=== PATIENT | male | born 1955 | race Two or more races ===

== ENCOUNTER 2019-06-04 21:35 | Inpatient (IN) | payer OTHER ==
[~2019-06-04] VITALS: Ht 177.8 cm; Wt 85.5 kg
[2019-06-04] MEDS ORDERED: FUROSEMIDE 40 MG/4 ML VIAL IV ONE (21:45)
[2019-06-04] MEDS ORDERED: IPRATROPIUM BROM 0.5 MG/2.5ML INH SOL ONE (22:00)
[2019-06-04] MEDS ORDERED: ALBUTEROL SULF 2.5 MG/0.5ML(0.5%) NEB SOLN ONE (22:00)
[2019-06-04] MEDS ORDERED: IPRATROPIUM BROM 0.5 MG/2.5ML INH SOL NEB ONE (22:00)
[2019-06-04] MEDS ORDERED: ALBUTEROL SULF 2.5 MG/0.5ML(0.5%) NEB SOLN NEB ONE (22:00)
[2019-06-04] MEDS ORDERED: cloNIDine HCL 0.1 MG TAB PO ONE (22:30)
[2019-06-04 22:34] LABS: Basophils # (auto) 0.1 uL; Basophils % (auto) 0.5 % (0.0-2.0); Eosinophils # (auto) 0.3 uL; Hematocrit 35.6 % (41.0-53.0); Hemoglobin 11.8 g/dL (13.5-17.5); Lymphocytes # (auto) 1.9 uL; Lymphocytes % (auto) 17.1 % (10.0-50.0); Mean Corpuscular Hemoglobin 30.8 pg (28.0-32.0); Mean Corpuscular Hgb Conc. 33.1 g/dL (32.0-36.0); Mean Corpuscular Volume 92.9 fL (80.0-100.0); Monocytes # (auto) 0.6 uL; Neutrophils % (auto) 73.4 % (37.0-80.0); Platelet Count (auto) 159 10^3/uL (140-450); Red Blood Cells 3.84 10^6/uL (4.5-5.90); Red Cell Distribution Width 13.5 % (11.8-14.3); White Blood Cell 10.9 10^3/uL (4.4-10.8)
[2019-06-04 22:49] LABS: INR 1.02 (0.9-1.15); Partial Thromboplastin Time 22.8 sec (23.64-32.05)
[2019-06-04 22:52] LABS: Albumin 3.4 g/dL (3.4-5.0); BUN/Creatinine Ratio 7.2; Calcium 8.4 mg/dL (8.5-10.1); Potassium 3.8 mmol/L (3.5-5.1)
[2019-06-04 22:55] LABS: Bilirubin, Total 0.4 mg/dL (0.2-1.0); Total Protein 7.2 g/dL (6.4-8.2)
[2019-06-04] MEDS ORDERED: ENOXAPARIN SOD 80 MG/0.8ML SYRINGE SC ONE (23:15)
[2019-06-04 23:17] LABS: Urine Bacteria FEW /hpf (None Seen); Urine Blood 1+ /uL (Negative); Urine Hyaline Cast FEW /lpf (0 - 2); Urine Specific Gravity 1.006 (1.001-1.035); Urine WBC 2 /hpf (0 - 3)
[2019-06-04 23:29] LABS: Alcohol, Urine < 3.0 mg/dL (0-5); Amphetamine Screen, Urine NEGATIVE (NEGATIVE); Barbiturate Scree,Urine NEGATIVE (NEGATIVE); Benzodiazephine Screen, Urine NEGATIVE (NEGATIVE); Cannabinoid Screen, Urine NEGATIVE (NEGATIVE); Cocaine Screen, Urine NEGATIVE (NEGATIVE); Opiate Scree,Urine NEGATIVE (NEGATIVE); Phencyclidine Screen, Urine NEGATIVE (NEGATIVE)
[2019-06-05] VITALS (20 sets, daily range): BP systolic 125–179; BP diastolic 60–110
[2019-06-05] MEDS: NITROGLYCERIN 50MG/250ML 250 ML IV SCH ×2 (03:30→18:38)
[2019-06-05] MEDS ORDERED: METOPROLOL TARTRATE 1MG/1ML-5ML VIAL IV ONE (05:15)
[2019-06-05] MEDS ORDERED: HYDROcodone-ACET 5/325MG TAB PO PRN (06:45)
[2019-06-05] MEDS ORDERED: MORPHINE SULF INJ 2 MG/ML SYRINGE 1ML IV PRN ×2 (06:45)
[2019-06-05] MEDS ORDERED: ASPirin 81 mg TAB PO ONE (06:45)
[2019-06-05] MEDS ORDERED: ONDANSETRON HCL 4 MG/2 ML VIAL IV PRN (06:45)
[2019-06-05] MEDS ORDERED: NITROGLYCERIN 0.4 MG SL TAB SL PRN (06:45)
[2019-06-05] MEDS ORDERED: hydrALAZINE HCL 20 MG/ML VL IV PRN (06:45)
[2019-06-05] MEDS ORDERED: ACETAMINOPHEN 500 MG TAB PO PRN (06:45)
[2019-06-05] MEDS ORDERED: LIDOCAINE 2%HCL (LOCAL ANESTH.) INJ 20ML MDV ONE (06:51)
--- NOTE | 2019-06-05 06:57 | NUR ---
RT NOTE: PT TAKEN OFF OF BIPAP AND PLACED ONTO 3LNC. WILL CONTINUE TO MONITOR.
[2019-06-05] MEDS ORDERED: ANGIOMAX 250 MG VIAL IV ONE (06:59)
[2019-06-05] MEDS ORDERED: SODIUM CHL 0.9% 50 ML ONE (07:00)
[2019-06-05] MEDS ORDERED: MIDAZOLAM HCL 1MG/1ML-2 ML VIAL ONE (07:00)
[2019-06-05] MEDS ORDERED: ATROPINE SULFATE 1 MG/1 ML VIAL ONE (07:00)
[2019-06-05] MEDS ORDERED: fentaNYL CITRATE 100 MCG/2 ML VL ONE (07:00)
[2019-06-05] MEDS ORDERED: IODIXANOL 320MG/ML 100ML BTL IV ONE (07:19)
[2019-06-05] MEDS ORDERED: EPINEPHrine HCL 1 MG/10 ML SYRG ONE (07:25)
[2019-06-05] MEDS ORDERED: TICAGRELOR 90 MG TAB ONE (07:44)
[2019-06-05] MEDS ORDERED: HEPARIN SODIUM (PORCINE) 5000 UNITS/ML 1ML VIAL ONE (07:51)
[2019-06-05] MEDS ORDERED: OPTISON 3ml Vial for INJ IV ONE (08:43)
[2019-06-05] MEDS: FAMOTIDINE 20 MG TAB PO SCH (09:13)
[2019-06-05] MEDS: DOCUSATE SOD 100 MG CAP PO SCH ×2 (09:13→22:24)
[2019-06-05] MEDS: METOPROLOL TARTRATE 25 MG TAB PO SCH ×2 (09:14→22:23)
[2019-06-05] MEDS ORDERED: LISINOPRIL 10 MG TAB PO SCH (10:00)
[2019-06-05] MEDS ORDERED: SODIUM CHL 0.9% 1000 ML BAG XX ONE (10:15)
--- NOTE | 2019-06-05 10:32 | NUR ---
I faxed clinical information to [facility] including ER notes, H&P, all xrays, operative report, current labs, vitals, and medication list.
[2019-06-05 10:49] LABS: Protein, Urine 235.2 mg/dL (0.0-11.9)
[2019-06-05 10:53] LABS: Phosphorus 4.9 mg/dL (2.5-4.90); Uric Acid 8.8 mg/dL (3.5-7.2)
[2019-06-05] MEDS: CALCIUM ACETATE 667 MG CAP PO SCH ×2 (12:00→18:31)
--- NOTE | 2019-06-05 12:45 | NUR ---
ICU pt S/P Cardiac Cath Report received from Jimmy Tanner. KAELYN AMOS brought to bed 109 following Left Cardiac catheterization, on laboratory monitor and portable oxygen. Patient transferred to ICU bed, connected to ICU monitoring and oxygen. Dialysis Catheter in right groin. Patient educated on need to keep leg straight and flat. Patient verbalized understanding. Site during bedside report noted to have oozing on current gauze dressing. Site soft to touch, no ecchymosis noted, slightly tender to touch. Dressing cleansed and changed by asphalt plant laborer nurse. Pedal pulses on affected leg assessed for positive tissue perfusion. Patient instructed on need to notify staff immediately if any pain, burning or wetness to site, and any lower back pain. Patient educated on new cardiac medications. All questions and concerns addressed, patient verbalized understanding of all education and instruction. See notes for any further. NOTE: Addendum: 06/05/19 at 1405 by Divina Briones RN Patient currently on 60mcg of Nitro gtt. bp 156/83. Patient denies any chest pain or distress.
--- NOTE | 2019-06-05 13:00 | NUR ---
AT BEDSIDE Dr. Rojas at bedside. Updated on patients status. See new orders.
--- NOTE | 2019-06-05 13:58 | NUR ---
DIALYSIS PENDING DANDY FROM [facility] CALLED STATING SHE WILL BE ARRIVING AFTER HER CURRENT TREATMENT IN PROGRESS. PATIENT NOTIFIED AND VERBALIZED UNDERSTANDING.
--- NOTE | 2019-06-05 15:09 | NUR ---
Respiratory note: PT ASSESSED SP MANAGER HOTEL PROCEDURE, NO DISTRESS NOTED. SPO2 97% ON 2L N/C.
--- NOTE | 2019-06-05 15:25 | NUR ---
Right groin Patients right groin noted moderately saturated. 4x4 gauze replaced as dialysis nurse is in route. Catheter site noted to have small, slow amount of sanguinous drainage. Pulses present. No ecchymosis noted, soft upon palpation with some tenderness.
--- NOTE | 2019-06-05 15:31 | NUR ---
Dialysis nurse at bedside. Chart reviewed. Traci aware of right groin having slow steady oozing to site.
--- NOTE | 2019-06-05 17:20 | NUR ---
Family/home medications Patients sister Manjula unable to find patients home medications. She is stating she is going to attempt to contact patients pharmacy for list. Home med rec. pending.
--- NOTE | 2019-06-05 18:49 | NUR ---
DIALYSIS COMPLETE 2 LITERS REMOVED. LAST BP 144/85 HR 73. PT HAS SMALL AMOUNT OF CRAMPING TO LEFT LOWER LEG. DIALYSIS NURSE AT BEDSIDE DISCUSSED WITH PATIENT AND FAMILY MEMBER AT BEDSIDE S/S EXPECTED POST TX. PT VERBALIZED UNDERSTANDING. Addendum: 06/05/19 at 1851 by Divina Briones RN RIGHT GROIN DRESSING REMAINS INTACT, SMALL AMOUNT OF SANGUINOUS DRAINAGE NOTED. WILL CONTINUE TO MONITOR
--- NOTE | 2019-06-05 19:24 | NUR ---
NAUSEA/ VOMITING Patient in high fowlers post dialysis and suddenly became nauseous and vomited a moderate amount of emesis. Prn given. Patient continues to state he is hungry and requesting dinner tray. Tray set at bedside.
[2019-06-05] MEDS ORDERED: CLOPIDOGREL 300 MG TAB PO ONE (21:00)
[2019-06-05] MEDS: ATORVASTATIN 20 MG TAB PO SCH (22:24)
[2019-06-06] VITALS (22 sets, daily range): BP systolic 115–189; BP diastolic 71–128
[2019-06-06 04:29] LABS: Basophils # (auto) 0.1 uL; Basophils % (auto) 0.6 % (0.0-2.0); Eosinophils # (auto) 0.1 uL; Eosinophils % (auto) 0.7 % (0.0-7.0); Hematocrit 32.5 % (41.0-53.0); Hemoglobin 11.3 g/dL (13.5-17.5); Lymphocytes # (auto) 2.2 uL; Lymphocytes % (auto) 19.2 % (10.0-50.0); Mean Corpuscular Hemoglobin 31.2 pg (28.0-32.0); Mean Corpuscular Hgb Conc. 34.7 g/dL (32.0-36.0); Mean Corpuscular Volume 89.9 fL (80.0-100.0); Monocytes # (auto) 1.5 uL; Monocytes % (auto) 13.2 % (0.0-12.0); Neutrophils # (auto) 7.6 uL; Neutrophils % (auto) 66.3 % (37.0-80.0); Platelet Count (auto) 135 10^3/uL (140-450); Red Blood Cells 3.62 10^6/uL (4.5-5.90); Red Cell Distribution Width 13.2 % (11.8-14.3); White Blood Cell 11.5 10^3/uL (4.4-10.8)
[2019-06-06 04:46] LABS: INR 1.06 (0.9-1.15); Partial Thromboplastin Time 24.8 sec (23.64-32.05)
[2019-06-06 04:54] LABS: Albumin 3.1 g/dL (3.4-5.0); Calcium 8.8 mg/dL (8.5-10.1); Potassium 3.6 mmol/L (3.5-5.1)
[2019-06-06 04:59] LABS: Cholesterol 130 mg/dL (< 200); HDL Cholesterol 29 mg/dL (40-59); LDL Cholesterol 82 mg/dL (< 100); Triglycerides 136 mg/dL (< 150)
[2019-06-06 05:13] LABS: BUN/Creatinine Ratio 6.9; Bilirubin, Total 0.7 mg/dL (0.2-1.0); Total Protein 6.8 g/dL (6.4-8.2)
--- NOTE | 2019-06-06 07:30 | NUR ---
REPORT REPORT RECEIVED FROM SIDNEY RNFLORENTIN. PT RESTING IN BED WITH NO COMPLAINTS. VSS. CONTINUE TO MONITOR.
--- NOTE | 2019-06-06 07:50 | NUR ---
ASSESSMENT PT AWAKE AND A/O X4. ABLE TO MOVE SELF IN BED. PT STILL WITH SHEATH TO RIGHT FEMORAL, SITE BENIGN. LUNGS CLEAR THROUGHOUT. LEON SIR SAT OF 96%. TELE SR WITH RARE PAC, ST DEPRESSION IN LEAD II AND ELEVATED ST IN LEAD V AND INVERTED T WAVE IN LEADS II AND V. DENIES ANY CHEST PAIN , PRESSURE, OR SOB. ABD SOFT WITH + BOWEL SOUNDS. SHELBY CATHETER DRAINING CLEAR YELLOW URINE. SKIN INTACT OTHER THAN SHEATH TO RIGHT FEMORAL. CONTINUE TO MONITOR. Addendum: 06/06/19 at 1102 by Jennie Estevez RN CLARIFICATION PT WITH HDX CATHETER IN PLACE TO RIGHT FEMORAL NOT A SHEATH.
[2019-06-06] MEDS: CALCIUM ACETATE 667 MG CAP PO SCH ×3 (08:13→18:24)
[2019-06-06] MEDS: amLODIPine BESYLATE 5 MG TAB PO SCH (08:16)
--- NOTE | 2019-06-06 08:16 | NUR ---
BP 160/128. REPOSITIONED CUFF AND REPEAT BP OF 162/76. ADMINISTERED DAILY DOSE OF NORVASC 10 MG PO. CONTINUE TO MONITOR BP.
--- NOTE | 2019-06-06 09:00 | NUR ---
PT SLEEPING AFTER BREAKFAST. ATE 100% OF MEAL. BP OF 142/75.
[2019-06-06] MEDS: METOPROLOL TARTRATE 25 MG TAB PO SCH ×2 (09:55→22:08)
[2019-06-06] MEDS: CLOPIDOGREL BISULFATE 75 MG TAB PO SCH (09:55)
[2019-06-06] MEDS: DOCUSATE SOD 100 MG CAP PO SCH ×2 (09:55→22:08)
[2019-06-06] MEDS: B-COMPLEX W/ C & FOLIC ACID(NEPHROVITE TAB) PO SCH (09:55)
[2019-06-06] MEDS: FAMOTIDINE 20 MG TAB PO SCH (09:55)
[2019-06-06] MEDS ORDERED: ISOSORBIDE DINITRATE 10 MG TAB PO ONE ×2 (10:15→10:45)
[2019-06-06] MEDS ORDERED: METOPROLOL TARTRATE 25 MG TAB PO ONE (10:15)
--- NOTE | 2019-06-06 10:20 | NUR ---
PT SEEN AND EXAMINED BY DR REIS. HE SPOKE WITH THE PT AND HIS FAMILY. PT WILL RETURN TO [facility] TOMORROW AND WILL BE NPO AFTER MIDNIGHT. ORDERS RECEIVED.
[2019-06-06] MEDS ORDERED: ATEN50TA PO (10:55)
[2019-06-06] MEDS ORDERED: HYDR-4296 PO (10:55)
[2019-06-06] MEDS ORDERED: ATOR40TA52 PO (10:55)
--- NOTE | 2019-06-06 10:57 | NUR ---
GIVEN ADDITIONAL 25 MG PO METOPROLOL FOR NEW ORDER OF 50 MG PO BID. OBTAINED HOME MEDICATION INFORMATION.
--- NOTE | 2019-06-06 12:30 | NUR ---
GIVEN SCHEDULED MEDS. WAITING FOR LUNCH. DENIES ANY PAIN OR SOB. CONTINUE TO MONITOR.
--- NOTE | 2019-06-06 15:30 | NUR ---
MD VISIT PT SEEN AND EXAMINED BY DR ALFARO. HDX SCHEDULED FOR TOMORROW.
--- NOTE | 2019-06-06 15:46 | NUR ---
TUNNELING DIALYSIS CATHETER DR ALFARO ORDERED FOR RADIOLOGY CONSULT WITH DR NASH FOR TUNNELED CATHETER PLACEMENT. MARIA FERNANDA, RADIOLOGY, CALLED AND STATED [facility] A FULL SCHEDULE TOMORROW AND NOT LIKELY THAT DR NASH WOULD BE ABLE TO DO THE PROCEDURE TOMORROW. INFORMED DR ALFARO AND HE STATED THAT IF IT CANNOT BE PLACED TOMORROW, THAT MONDAY WOULD BE OKAY. PER MARIA FERNANDA, KEEP PT NPO AFTER MIDNIGHT AND SHE WILL CHECK WITH [facility] FIRST THING TOMORROW MORNING TO SEE IF THERE IS TIME AVAILABLE.
--- NOTE | 2019-06-06 18:20 | NUR ---
SERVED PT HIS DINNER. ADVISED HIM THAT IN THE COMPUTER, HIS PROCEDURE IS SCHEDULED FOR 1200 TOMORROW AND THAT HE WILL BE NPO AFTER MIDNIGHT. HE EXPRESSED UNDERSTANDING.
--- NOTE | 2019-06-06 19:15 | NUR ---
REPORT REPORT GIVEN TO VILMA LITTLE RN.
--- NOTE | 2019-06-06 20:20 | NUR ---
CONSENT PATIENT VERBALIZES THAT THE MD HAS TALKED AND EXPLAINED TO HIM ABOUT THE LEFT HEART CATH TOMORROW. AND HE AGREES AND UNDERSTAND. INFORMED THAT THE RADIOLOGIST MIGHT CHANGE THE DIALYSIS CATHETER IN THE RIGHT GROIN TO A TUNNEL CATHETER IN THE MORNING TOO OR ON MONDAY DEPENDING ON THE AVAILABILITY OF THREAD DRAWER. CONSENTS SIGNED. NO QUESTIONS RAISED REGARDING THE PROCEDURE TOMORROW. HE SAID HIS DAUGHTER KNOWS IT TOO.
[2019-06-06] MEDS: ATORVASTATIN 20 MG TAB PO SCH (22:08)
[2019-06-06] MEDS: ISOSORBIDE DINITRATE 10 MG TAB PO SCH (23:12)
--- NOTE | 2019-06-06 23:18 | NUR ---
PATIENT IS NPO AFTER MIDNIGHT FOR PROCEDURE PATIENT TOOK JELLO AND BISCUIT FOR SLEEPING
[2019-06-07] VITALS (25 sets, daily range): BP systolic 125–166; BP diastolic 71–104
--- NOTE | 2019-06-07 00:27 | NUR ---
ROUNDS PATIENT RESTING NOW, EYES CLOSED. VS STABLE.
--- NOTE | 2019-06-07 00:35 | NUR ---
DESATURATION PATIENT'S SPO2 70% WITH GOOD WAVEFORM PATIENT IS SLEEPING PLACED ON NC 2L/MIN - SPO2 PICKED UP TO 100% WILL CONTINUE TO MONITOR
--- NOTE | 2019-06-07 02:08 | NUR ---
ROUNDS PATIENT IS RESTING, EYES CLOSED. VS STABLE. WILL CONTINUE TO MONITOR
[2019-06-07] MEDS: NITROGLYCERIN 50MG/250ML 250 ML IV SCH (02:31)
[2019-06-07 03:53] LABS: Basophils # (auto) 0.1 uL; Basophils % (auto) 0.8 % (0.0-2.0); Eosinophils # (auto) 0.3 uL; Eosinophils % (auto) 2.6 % (0.0-7.0); Hematocrit 32.8 % (41.0-53.0); Hemoglobin 11.3 g/dL (13.5-17.5); Lymphocytes # (auto) 2.3 uL; Lymphocytes % (auto) 20.3 % (10.0-50.0); Mean Corpuscular Hemoglobin 31.6 pg (28.0-32.0); Mean Corpuscular Hgb Conc. 34.4 g/dL (32.0-36.0); Mean Corpuscular Volume 91.9 fL (80.0-100.0); Monocytes # (auto) 1.4 uL; Monocytes % (auto) 12.5 % (0.0-12.0); Neutrophils # (auto) 7.3 uL; Neutrophils % (auto) 63.8 % (37.0-80.0); Platelet Count (auto) 134 10^3/uL (140-450); Red Blood Cells 3.57 10^6/uL (4.5-5.90); Red Cell Distribution Width 13.1 % (11.8-14.3); White Blood Cell 11.5 10^3/uL (4.4-10.8)
--- NOTE | 2019-06-07 04:00 | NUR ---
HYGIENE/SHAVING PATIENT IS AWAKE NOW. CLEANED WITH CHG WIPES. LEFT AND RIGHT INNER ARM HAIR CLIPPED LEFT GROIN SITE CLIPPED LINENS CHANGED PATIENT ASSISTED IN RECLINER CHAIR Addendum: 06/07/19 at 7040 by Allyson Arreola RN PATIENT BRUSHED HIS TEETH
--- NOTE | 2019-06-07 04:00 | NUR ---
RIGHT FEMORAL DIALYSIS CATHETER DRESSING CHANGED. CLEANED WITH POVIDINE.
[2019-06-07 04:11] LABS: BUN/Creatinine Ratio 8.4; Calcium 8.9 mg/dL (8.5-10.1)
[2019-06-07 04:14] LABS: Bilirubin, Total 0.5 mg/dL (0.2-1.0); Total Protein 6.7 g/dL (6.4-8.2)
[2019-06-07] MEDS ORDERED: SODIUM CHL 0.9% 1000 ML BAG XX ONE (07:00)
[2019-06-07] MEDS: CALCIUM ACETATE 667 MG CAP PO SCH ×2 (08:00→12:00)
--- NOTE | 2019-06-07 08:00 | NUR ---
OPENING SHIFT NOTE PATIENT LYING IN HOSPITAL BED, EYES CLOSED. RESPIRATIONS EVEN AND UNLABORED, CONNECTED TO BEDSIDE MONITORING. AWOKE TO VOICE, AOX4, DENIES PAIN AT THIS TIME. SHELBY PRESENT AND DRAINING YELLOW URINE TO GRAVITY. BED IN LOW POSITION, CALL LIGHT WITHIN REACH AND INSTRUCTED TO CALL IF NEEDED. PATIENTS CURRENTLY NPO, AWAITING NURSING CLERK PROCEDURE
[2019-06-07] MEDS: B-COMPLEX W/ C & FOLIC ACID(NEPHROVITE TAB) PO SCH (10:00)
--- NOTE | 2019-06-07 11:18 | NUR ---
DR RICO AT BEDSIDE DISCUSSED PLAN OF CARE WITH PATIENT AND PATIENTS FAMILY, NOTE WRITTEN FOR WORK AND GIVEN TO PATIENT
[2019-06-07] MEDS: CLOPIDOGREL BISULFATE 75 MG TAB PO SCH (11:37)
[2019-06-07] MEDS: FAMOTIDINE 20 MG TAB PO SCH (11:37)
[2019-06-07] MEDS: METOPROLOL TARTRATE 25 MG TAB PO SCH (11:39)
[2019-06-07] MEDS: amLODIPine BESYLATE 5 MG TAB PO SCH (11:39)
[2019-06-07] MEDS: ISOSORBIDE DINITRATE 10 MG TAB PO SCH (11:40)
--- NOTE | 2019-06-07 13:23 | NUR ---
CONVERSION DEVELOPER TEAM AT BEDSIDE TO TAKE PATIENT TO PROCEDURE
[2019-06-07 13:25] LABS: % Iron Saturation 12.9 % (20-55)
[2019-06-07] MEDS ORDERED: IODIXANOL 320MG/ML 100ML BTL IV ONE (13:25)
[2019-06-07] MEDS ORDERED: LIDOCAINE 2%HCL (LOCAL ANESTH.) INJ 20ML MDV ONE (13:25)
[2019-06-07] MEDS ORDERED: ANGIOMAX 250 MG VIAL IV ONE (13:41)
[2019-06-07] MEDS ORDERED: VERAPAMIL 2.5MG/ML INJ 2ML VIAL IV ONE (13:41)
[2019-06-07] MEDS ORDERED: fentaNYL CITRATE 100 MCG/2 ML VL ONE (13:42)
[2019-06-07] MEDS ORDERED: SODIUM CHL 0.9% 50 ML ONE (13:42)
[2019-06-07] MEDS ORDERED: MIDAZOLAM HCL 1MG/1ML-2 ML VIAL ONE (13:42)
[2019-06-07] MEDS ORDERED: ASPirin 325 MG TAB ONE (13:49)
[2019-06-07] MEDS ORDERED: CLOPIDOGREL BISULFATE 75 MG TAB ONE (13:49)
--- NOTE | 2019-06-07 14:40 | NUR ---
PATIENT RETURNED FROM RESTAURANT ASSISTANT MANAGER RIGHT RADIAL TR BAND PRESENT. NO S/S OF BLEEDING OR HEMATOMA NOTED. VITAL SIGNS STABLE.
--- NOTE | 2019-06-07 15:15 | NUR ---
SPOKE WITH [facility]. [facility] CURRENTLY WORKING ON TRANSFER TO THEIR FACILITY. PATIENT AWARE AND AGREES WITH TRANSFER
[2019-06-07] MEDS: DOCUSATE SOD 100 MG CAP PO SCH (15:41)
--- NOTE | 2019-06-07 15:45 | NUR ---
TR BAND DEFLATED 2 CC FROM TR BAND FROM RIGHT RADIAL. NO BLEEDING NOTED, WILL CONTINUE TO MONITOR CLOSELY
--- NOTE | 2019-06-07 18:00 | NUR ---
TR BAND COMPLETELY DEFLATED NO S/S OF BLEEDING OR HEMATOMA NOTED.
--- NOTE | 2019-06-07 18:30 | NUR ---
TRANSFER TO [facility], BED ASSIGNMENT [facility] BED 202 REPORT TO BE CALLED TO [phone] ACCEPTING MD: DR Monae MIKE MOTION PICTURE ACTOR ETA 2000
--- NOTE | 2019-06-07 19:30 | NUR ---
Initial Assessment Patient received laying on bed watching television. Patient is awake, alert, and oriented x4. He states he is aware of transfer and remains agreeable to transfer to [facility]. HOB elevated greater than 30 degrees. RR even and unlabored with equal rise and fall on room air. PERRLA intact and brisk. Patient demonstrated ability to turn self independently in bed and move all four extremities with equal strength bilaterally. Patient denies any discomfort, SOB, or chest pain. Abd soft and non-tender. Right wrist TR band intact but fully deflated as of 1800 per day shift RN report. TR band taken off. Incision site assessed to be benign with no s/s of bleeding, hematoma,ecchymosis, or pain present. Neurovascular status intact with palpable distal pulses x4 extremities, skin warm to touch, capillary refill brisk. F/C intact and draining to gravity. Patient educated about how to use the call light and encouraged to call when needing any assistance or wanting to get OOB and patient verbalized understanding. Bed in lowest position, side rails up, bed brakes set. Call light and side table are within reach. Continue close monitoring.
--- NOTE | 2019-06-07 19:33 | NUR ---
Hospitalist dougie constantino hospitalist via PBX to report critical labs and new onset bleeding. Waiting for call back. Addendum: 06/07/19 at 2121 by Pavithra Bates RN disregard-wrong patient.
--- NOTE | 2019-06-07 19:40 | NUR ---
REPORT GIVEN TO [facility] WILLIAMSON, MANOHAR [phone]
--- NOTE | 2019-06-07 20:25 | NUR ---
Pt. Transferred to [place] Patient continues to agree with transfer to [place]. patient transferred to [place] via [facility] per MD order. Patient states his daughter has all personal belongings except cell phone, which he has in his hand at time of transfer. AT time of transfer, patient is alert and oriented x4 with no s/s of distress and denies pain. RR even and unlabored. wrist s/p heart cath remains benign. Neurovascular status intact. All vitals stable. Care endorsed to [facility] medics.
--- NOTE | 2019-06-07 20:40 | NUR ---
Visitors Patient's family at bedside. Updated on status of patient and POC. They verbalized understanding. No concerns or complaints voiced from them at this time. Sandra brought in list of home medications-RN will input in chart. Addendum: 06/07/19 at 2121 by Pavithra Bates RN disregard-wrong patient.
--- NOTE | 2019-06-07 20:45 | NUR ---
Hospitalist paged 2nd time RN paged hospitalist again via PBX to report critical labs and new onset bleeding. Waiting for call back. Addendum: 06/07/19 at 2121 by Pavithra Bates RN disregard-wrong patient.
--- NOTE | 2019-06-07 20:50 | NUR ---
Pt's daughter call Pt's daughter called and gave correct password. RN informed that patient was transferred to [facility]. She verbalized understanding. No concerns or complaints voiced from her at his time.
--- NOTE | 2019-06-07 21:00 | NUR ---
Hospitalist called back Dr. Valle called back. RN informed him of critical PTT and new onset bleeding from nose, mouth, and right femoral catheter site. Also informed of potassium prior to dialysis and no accu checks ordered to prevent another hypoglycemic event. He ordered: -re check PTT (though peripheral draw only) -re-check potassium -start patient on Q4H accu checks RN performed TORB and verified orders to be correct. No additional orders received. Addendum: 06/07/19 at 2121 by Pavithra Bates RN disregard-wrong patient.
[2019-06-08 08:06] LABS: Immunoglobulin G, Serum 875 mg/dL (700-1600)
== END 2019-06-07 20:25 | disposition short-term general hospital (02) | DRG 246 ==
LOC: ER 21:37 → TELE 21:38 → ICU WEST 06-05 12:04
PROVIDERS: ADMIT Nurse Practitioner Acute Care; ATTEND Internal Medicine
PROC: 027034Z Dilation of Coronary Artery, One Artery with Drug-eluting Intraluminal Device, Percutaneous Approach (ICD-10-PCS; principal; 2019-06-05)
PROC: 4A023N7 Measurement of Cardiac Sampling and Pressure, Left Heart, Percutaneous Approach (ICD-10-PCS; 2019-06-05)
PROC: B2111ZZ Fluoroscopy of Multiple Coronary Arteries using Low Osmolar Contrast (ICD-10-PCS; 2019-06-05)
PROC: 5A1D70Z Performance of Urinary Filtration, Intermittent, Less than 6 Hours Per Day (ICD-10-PCS; 2019-06-05)
PROC: 06HY33Z Insertion of Infusion Device into Lower Vein, Percutaneous Approach (ICD-10-PCS; 2019-06-05)
PROC: B41F1ZZ Fluoroscopy of Right Lower Extremity Arteries using Low Osmolar Contrast (ICD-10-PCS; 2019-06-05)
PROC: 027034Z Dilation of Coronary Artery, One Artery with Drug-eluting Intraluminal Device, Percutaneous Approach (ICD-10-PCS; 2019-06-07)
PROC: B240ZZ3 Ultrasonography of Single Coronary Artery, Intravascular (ICD-10-PCS; 2019-06-07)
DX: I21.4 Non-ST elevation (NSTEMI) myocardial infarction (principal); I50.21 Acute systolic (congestive) heart failure; J96.00 Acute respiratory failure, unspecified whether with hypoxia or hypercapnia; N17.0 Acute kidney failure with tubular necrosis; E87.2 Acidosis; I13.0 Hypertensive heart and chronic kidney disease with heart failure and stage 1 through stage 4 chronic kidney disease, or unspecified chronic kidney disease; I16.9 Hypertensive crisis, unspecified; N18.4 Chronic kidney disease, stage 4 (severe); D64.9 Anemia, unspecified; E11.21 Type 2 diabetes mellitus with diabetic nephropathy; E11.22 Type 2 diabetes mellitus with diabetic chronic kidney disease; E11.65 Type 2 diabetes mellitus with hyperglycemia; E21.3 Hyperparathyroidism, unspecified; E78.00 Pure hypercholesterolemia, unspecified; E78.5 Hyperlipidemia, unspecified; I25.10 Atherosclerotic heart disease of native coronary artery without angina pectoris
CPT/HCPCS: 36415; 36600; 71045; 76775; 80053; 80061; 80307; 81001; 82306; 82570; 82728; 82784; 82805; 83036; 83540; 83550; 83605; 83880; 83970; 84100; 84156; 84300; 84484; 84550; 85025; 85610; 85730; 86141; 86334; 87081; 90935; 93306; 94640; 94660; 96372; 96374; 96375; 99152; 99153; C1874; C1887; G0378; J0461; J1642; J2250; J2405; Q9956; Q9967

== ENCOUNTER 2019-06-24 11:15 | Emergency (ER) | payer OTHER ==
[~2019-06-24] VITALS: Ht 177.8 cm; Wt 81.6 kg
[~2019-06-24 11:15] MED LIST: ATEN50TA PO; ATOR40TA52 PO; HYDR-4296 PO
[2019-06-24] MEDS ORDERED: SODIUM CHLORIDE 0.9% 500 ML IVB ONE (11:22)
[2019-06-24 13:03] LABS: Basophils # (auto) 0.1 uL; Basophils % (auto) 0.5 % (0.0-2.0); Eosinophils # (auto) 0.1 uL; Eosinophils % (auto) 0.5 % (0.0-7.0); Hematocrit 29.2 % (41.0-53.0); Lymphocytes # (auto) 1.1 uL; Lymphocytes % (auto) 7.9 % (10.0-50.0); Mean Corpuscular Hgb Conc. 34.3 g/dL (32.0-36.0); Mean Corpuscular Volume 87.6 fL (80.0-100.0); Monocytes # (auto) 1.1 uL; Monocytes % (auto) 8.1 % (0.0-12.0); Neutrophils # (auto) 11.4 uL; Platelet Count (auto) 254 10^3/uL (140-450); Red Blood Cells 3.33 10^6/uL (4.5-5.90); Red Cell Distribution Width 12.3 % (11.8-14.3); White Blood Cell 13.8 10^3/uL (4.4-10.8)
[2019-06-24 13:18] LABS: INR 0.96 (0.9-1.15); Partial Thromboplastin Time 24.6 sec (23.64-32.05)
[2019-06-24 15:17] LABS: Albumin 3.1 g/dL (3.4-5.0); BUN/Creatinine Ratio 7.2; Calcium 8.9 mg/dL (8.5-10.1); Magnesium 2.9 mg/dL (1.6-2.6); Potassium 3.6 mmol/L (3.5-5.1)
[2019-06-24 15:21] LABS: Bilirubin, Total 0.2 mg/dL (0.2-1.0); Total Protein 7.7 g/dL (6.4-8.2)
[2019-06-24 16:46] LABS: Urine Bacteria NONE SEEN /hpf (None Seen); Urine Blood Negative /uL (Negative); Urine Specific Gravity 1.004 (1.001-1.035); Urine WBC 1 /hpf (0 - 3)
[2019-06-24 18:17] VITALS: BP 140/81
== END 2019-06-24 18:34 | disposition home or self-care (01) ==
LOC: EDBD 11:15 → ER 11:22
DX: I13.2 Hypertensive heart and chronic kidney disease with heart failure and with stage 5 chronic kidney disease, or end stage renal disease (principal); N18.5 Chronic kidney disease, stage 5; I50.9 Heart failure, unspecified; R55 Syncope and collapse; R79.89 Other specified abnormal findings of blood chemistry; Z98.61 Coronary angioplasty status
CPT/HCPCS: 36415; 70450; 71045; 80053; 81001; 83735; 84484; 85025; 85610; 85730; 93005; 94761; 96360; 99284; J7030